=== PATIENT | female | born 1945 | race Caucasian/White ===

== ENCOUNTER 2016-12-23 00:48 | Day surgery (SDC) | payer MEDICARE ==
[2016-12-23] VITALS (14 sets, daily range): BP systolic 105–152; BP diastolic 55–78; PULSE 59–72; RESP 14–20; O2SAT 94–100
[~2016-12-23] VITALS: Ht 170.2 cm; Wt 66.4 kg
[~2016-12-23 00:48] MED LIST: ASCO500C6 PO; ASPI-973 PO; CALC-722 PO; CITA10TA9 PO; DILT-17 PO; DOCU-41 PO; GLUC-167 PO; GLUC750C PO; OMEG-38 PO; SIMV20TA4 PO; VIT1TABL83 PO
[2016-12-23] MEDS ORDERED: 0.9% Sodium Chloride 1,000 ML ONE ×2 (09:54→14:44)
[2016-12-23 10:41] LABS: BASOPHILS % (AUTO) 0.7 % (0-3); EOSINOPHILS % (AUTO) 2.8 % (0-5); MONOCYTES % (AUTO) 6.6 % (4-12); Mean Corpuscular Hemoglobin 30.8 pg (27.0-35.0); Mean Corpuscular Volume 91.7 fL (81-100); NEUTROPHILS % (AUTO) 66.1 % (40-74); Platelet Count 222 bil/L (150-400)
[2016-12-23] MEDS ORDERED: UBID300C PO (10:54)
[2016-12-23 10:55] LABS: INR 0.97 ratio
--- NOTE | 2016-12-23 13:02 | NUR ---
Admit TUNG Admitted to [facility] about 1000. VSS. Denies pain. Tele SR in 60's. IV's started and labs sent. Procedure and recovery reviewed and verbalizes understanding. Awaiting Contact Manager.
[2016-12-23] MEDS ORDERED: Heparin 1,000 Unit/mL 10 mL Inj ONE (14:44)
[2016-12-23] MEDS ORDERED: fentaNYL-PF 50 mCg/mL 2 mL Inj ONE (15:07)
[2016-12-23] MEDS ORDERED: Isoproterenol 200 mCg/50 mL D5W IV IV ONE (15:57)
[2016-12-23] MEDS ORDERED: Methohexital 10 mg/mL 50 mL Inj ONE (16:26)
[2016-12-23] MEDS ORDERED: Ondansetron 2 mg/mL 2 mL Inj IVPUSH PRN (17:20)
--- NOTE | 2016-12-23 18:53 | NUR ---
Received Received from slab lifting engineer about 1735. Denies pain. Bilateral groins without bleeding or hematoma. VSS. Tele SR. Taking po well. Monitor per orders. Family at bedside.
--- NOTE | 2016-12-23 22:09 | NUR ---
Bleeding Bedrest complete at 2130. Discharge instructions reviewed, see sheets, verbalizes understanding. VSS and groins stable. Up to bathroom and ambulated in [place] but bleeding from left groin and small hematoma started. Assisted back to bed and pressure held 20 minutes. No bleeding or hematoma. Will try again at 1030. VSS. Tele SR.
--- NOTE | 2016-12-23 22:49 | NUR ---
Discharge Bilateral groin stable after ambulation in [place] at 2230. IVs discontinued intact. Discharged ambulatory with all belongings and . in no distress at 2248.
--- NOTE | 2016-12-24 03:59 | PROCED ---
[address] [address] PROCEDURE NOTE PATIENT: JARETH SMITH : 1945 MR#: [id number] ADMIT: 12/23/2016 JOB ID: [id number] DATE OF SERVICE: 12/23/2016 PREOPERATIVE DIAGNOSIS(ES): Drug refractory paroxysmal supraventricular tachycardia. 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 PROCEDURES PERFORMED: 1. Comprehensive electrophysiology study with left atrial pacing recording via the coronary sinus catheter. 2. Three-dimensional electroanatomic mapping using the CARTO 3 System. 3. Slow pathway modification (AV dio reentrant tachycardia ablation; atrial site ablation). 4. Drug provocation with isoproterenol. 5. Fluoroscopy. SURGEON: Heeler Machine: Umair Perikns MD, electrophysiology attending. GYPSUM CALCINER: 1. Anurag Garza PA-C. 2. Amrita Mccracken. ANESTHESIA: Gentle dosing of Versed and fentanyl were utilized for an appropriate level of sedation. INDICATION: The patient is a pleasant 71-year-old woman with drug refractory symptomatic paroxysmal short RP SVT. After discussion of risks and benefits of catheter-based mapping ablation, she opted to proceed. PROCEDURAL DESCRIPTION: Following informed consent, the patient was taken to the EP lab in a fasting nonsedated state, where she was prepped and draped in the usual sterile fashion. The bilateral groins were infiltrated with 1% lidocaine. Then, using the modified Seldinger technique, one 8 and one 7-Argentine sheath were inserted into right femoral vein and two 6-Argentine sheaths were inserted into left femoral vein. Then, under fluoroscopic guidance, a deflectable decapolar catheter was advanced to the coronary sinus with the most proximal bipolar at the os of the sinus. A CRD-2 catheter was advanced to the His position and a distal quadripolar catheter was advanced to the RV apex. A comprehensive electrophysiology study was undertaken with right atrial pacing and recording, right ventricular pacing and recording, His bundle recording, left atrial pacing and recording via the coronary sinus catheter. Retrograde conduction at baseline showed no VA conduction. On isoproterenol at 1 mcg/minute, retrograde conduction was identified in a concentric atrial activation pattern. Antegrade conduction showed an antegrade jump. Ultimately, with the aid of isoproterenol, the patient's clinical tachycardia was induced. This was a regular narrow tachycardia at a cycle length of 369 msec. Atrial activation was earliest along the septum, VA time of 0 msec. This was started with an antegrade jump. Taken together, this was consistent with AV dio reentry tachycardia. RV apical entrainment led to a VAV response with a post pacing interval minus tachycardia cycle length of 120 msec. We therefore, prepared for slow pathway modification. An F curve 4 mm non-irrigated ablation catheter was brought to the field and advanced to the right atrium. A three-dimensional electroanatomic map of the right atrium, tricuspid, annulus and triangle of Graham was created using the CARTO 3 System. Ablation lesions at [address] at the base of the triangle of Graham in the region of the slow pathway. Ultimately, the last of these lesions led to multiple conducted junctional beats. I did place the patient on isoproterenol during the ablation so that we could have intact VA conduction and have less concern about nonconducted PVCs. We then aggressively tried to reinduce the patient on isoproterenol, as well off of isoproterenol. No antegrade jumps were seen. No echoes were seen. No tachycardia was induced. We; therefore, ended the case. All catheters and sheaths were removed. Manual pressure was held for hemostasis. The patient was transferred to the [facility] for monitoring, bed rest, and discharge. COMPLICATIONS: None. ESTIMATED BLOOD LOSS: Negligible. FINDINGS: 1. Baseline rhythm is sinus with an RR interval 641 msec, DE 123 msec, QRS 52 msec, QT 344 msec. 2. Intracardiac intervals: AH interval 78 msec, HV 51 msec. Post ablation AH is 78 msec, HV is 49 msec. 3. Retrograde conduction: No VA conduction at baseline. There is no VA conduction with concentric activation on isoproterenol. 4. Antegrade conduction: AV Wenckebach 390 msec. An antegrade jump was seen. Atrial ERP is 290 msec at a [address] 5. 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 Post ablation, no antegrade jumps or echos were seen, nor was tachycardia inducible. IMPRESSION: Successful slow pathway modification for AV dio reentrant tachycardia. PLAN: 1. Bed rest x4 hours. 2. Continue aspirin daily. 3. Discontinue calcium channel blockade. 4. Follow up with myself or Anurag Garza in clinic in 3-4 weeks. ATTENDING STATEMENT: Umair Perkins MD, electrophysiology attending, was present for and supervised/performed all aspects of this procedure.
== END 2016-12-23 23:59 | disposition home or self-care (01) ==
LOC: SOUO 00:48
PROVIDERS: ATTEND Internal Medicine Cardiovascular Disease
DX: I47.1 Supraventricular tachycardia (principal)
CPT/HCPCS: 36415; 80048; 85025; 85610; 93005; 93613; 93621; 93623; 93653; 99152; 99153; C1730; C1732; J0131; J1644; J2250; J3010; J7030